=== PATIENT | male | born 1985 ===

== ENCOUNTER 2016-08-21 09:00 | Observation (INO) | payer MEDICAID ==
[2016-08-21 09:06] VITALS: BP 115/70; O2SAT 98
[2016-08-21 09:07] VITALS: BMI 17.7
[2016-08-21] MEDS ORDERED: Sodium Chloride 0.9% 1,000 ML IV STA (09:22)
--- NOTE | 2016-08-21 10:00 | RAD ---
HISTORY: fever COMPARISON: No prior. FINDINGS: LUNGS: No active pulmonary disease. PLEURA: No significant pleural effusion identified, no pneumothorax apparent. CARDIOVASCULAR: Normal. OSSEOUS STRUCTURES: No significant abnormalities. VISUALIZED UPPER ABDOMEN: Normal. OTHER FINDINGS: None. IMPRESSION: No active disease.
[2016-08-21 10:07] LABS: VENOUS BLOOD GAS BASE EXCESS 1.8 mmol/L (0.0-2.0); VENOUS BLOOD GAS PCO2 22 mmHg (40-60)
[2016-08-21 10:46] LABS: BASO # 0.1 K/uL (0.0-0.2); BASO % 0.4 % (0.0-2.0); EOS % 0.2 % (0.0-4.0); HEMATOCRIT 41.8 % (35.0-51.0); LYMPH # 0.8 K/uL (1.0-4.3); LYMPH % 5.1 % (20.0-40.0); MEAN CELL VOLUME 81.8 fl (80.0-94.0); MEAN CORPUSCULAR HEMOGLOBIN 27.3 pg (27.0-31.0); MEAN CORPUSCULAR HGB CONC 33.4 g/dL (33.0-37.0); MEAN PLATELET VOLUME 8.5 fl (7.2-11.7); MONO # 0.5 K/uL (0.0-0.8); MONO % 3.2 % (0.0-10.0); NEUT # 15.1 K/uL (1.8-7.0); NEUT % 91.1 % (50.0-75.0); PLATELET COUNT 272 K/uL (130-400); RED CELL DISTRIBUTION WIDTH 13.5 % (11.5-14.5); WHITE BLOOD COUNT 16.6 K/uL (4.8-10.8)
[2016-08-21 11:00] LABS: CHLORIDE 106 mmol/L (98-107); POTASSIUM 3.4 MMOL/L (3.6-5.0); SODIUM 141 mmol/l (132-148)
[2016-08-21 11:02] LABS: AST/SGOT 34 U/L (17-59); BILIRUBIN,TOTAL 0.9 mg/dl (0.2-1.3); CARBON DIOXIDE 23 mmol/L (22-30); GFR AFRICAN-AMERICAN > 60
[2016-08-21 11:03] LABS: ALB/GLOB RATIO 1.4 (1.0-2.1); ALKALINE PHOSPHATASE 171 U/L (38-126); ALT/SGPT 26 U/L (21-72); BLOOD UREA NITROGEN 12 mg/dl (9-20); CALCIUM 9.3 mg/dL (8.4-10.2); GLUCOSE,RANDOM 102 mg/dL (75-110); TOTAL PROTEIN 7.3 G/DL (6.3-8.2)
[2016-08-21 11:57] LABS: EOSINOPHIL 1 % (0-7); NEUTROPHIL 85 % (42-75); TOTAL CELLS COUNTED 100
[2016-08-21 11:59] LABS: LARGE PLATELETS PRESENT
[2016-08-21 16:54] VITALS: PULSE 72; RESP 18; TEMP 98.7
--- NOTE | 2016-08-21 18:14 | ED PDOC ---
HPI: General Adult Time Seen by Provider: 08/21/16 09:16 Chief Complaint (Nursing): Flu-like Symptoms Chief Complaint (Provider): Flu-like Symptoms History Per: Patient, EMS History/Exam Limitations: no limitations Onset/Duration Of Symptoms: Days (x4) Have you had recent travel within the past 21 days to any of the following countries: [place], [place], [place] or [place]?: No Current Symptoms Are (Timing): Still Present Severity: Moderate Additional Complaint(s): Hari Olmos is a 30 year old male, legally blind with a past medical history inclusive of seizures (last as of 2004, self-medicates with cannabis though supposed to be taking phenobarbital), who presents to the ED on 08/21/16 , via EMS, for the evaluation of both subjective fever and diffuse myalgias that he has experienced x4 days. ED visit was prompted after had experienced the sensation of convulsions this morning, though he denies loss of consciousness and is able to recall all events of episode. Denies headache, neck pain, photophobia, sore throat, abdominal pain, vomiting, diarrhea or rash. Further denies additional drug use. Sick contacts over the last week include a member of his family. PMD: non CPH Past Medical History Reviewed: Historical Data, Nursing Documentation, Vital Signs Vital Signs: Last Vital Signs Temp 98.7 F 08/21/16 16:54 Pulse 72 08/21/16 16:54 Resp 18 08/21/16 16:54 BP 115/70 08/21/16 09:06 Pulse Ox 98 08/21/16 09:06 - Medical History PMH: Fractures (left femur), Seizures (last 2004) Other PMH: legally blind - Surgical History Surgical History: No Surg Hx - Family History Family History: States: Unknown Family Hx - Social History Current smoker - smoking cessation education provided: No Alcohol: None Drugs: Cannabis - Immunization History Hx Tetanus Toxoid Vaccination: No Hx Influenza Vaccination: No Hx Pneumococcal Vaccination: No - Home Medications Home Medications: Ambulatory Orders Medication Instructions Recorded Ibuprofen [Motrin Tab] 600 mg PO Q6 PRN #15 tab 08/21/16 - Allergies Allergies/Adverse Reactions: Allergies Allergy/AdvReac Type Severity Reaction Status Date / Time No Known Allergies Allergy Verified 03/22/15 07:00 Review of Systems ROS Statement: Except As Marked, All Systems Reviewed And Found Negative Constitutional: Positive for: Fever (subjective), Malaise, Other (diffuse myalgias) ENT: Negative for: Throat Pain Gastrointestinal: Negative for: Vomiting, Abdominal Pain, Diarrhea Musculoskeletal: Negative for: Neck Pain Skin: Negative for: Rash Neurological: Positive for: Seizures ("sensation of convulsions" though no LOC, able to recall all events). Negative for: Headache, Other (no photophobia) Physical Exam - Reviewed Nursing Documentation Reviewed: Yes Vital Signs Reviewed: Yes - Physical Exam Appears: Positive for: Non-toxic, No Acute Distress Head Exam: Positive for: ATRAUMATIC, NORMOCEPHALIC Skin: Positive for: Normal Color, Warm, Dry ENT: Positive for: Normal ENT Inspection, TM Is/Are (normal b/l). Negative for : Pharyngeal Erythema, Tonsillar Exudate, Tonsillar Swelling Neck: Positive for: Normal, Painless ROM (no nuchal rigidity), Supple Cardiovascular/Chest: Positive for: Regular Rate, Rhythm. Negative for: Murmur Respiratory: Positive for: Normal Breath Sounds. Negative for: Respiratory Distress Gastrointestinal/Abdominal: Positive for: Normal Exam, Soft. Negative for: Tenderness Back: Positive for: Normal Inspection Extremity: Positive for: Normal ROM (no Kernig's Sign) Neurologic/Psych: Positive for: Alert, Oriented - Laboratory Results Result Diagrams: 08/21/16 10:33 08/21/16 10:33 - ECG O2 Sat by Pulse Oximetry: 98 (RA) Pulse Ox Interpretation: Normal Medical Decision Making Medical Decision Makin:16 Initial Impression: will workup for flu-like illness in setting of known seizure history. Initial Plan: * CXR * VBG Shock Panel * Labs * Udip * Urine Drug Screen * Influenza A B * IV NS 1000ml at 1000mls/hr * Toradol 30mg IV * Tylenol 975mg PO * Reevaluation 13:00 Labs reviewed, notable for mildly elevated WBC count. CXR and chemistry are unremarkable. Patient is negative for Influenza. Patient will be placed into ED Observation so that he can be monitored for signs of developing headache or nuchal rigidity. See Obs note for further updates. Scribe Attestation: Documented by Denise Box, acting as a scribe for Paras Glass III, DO. Provider Scribe Attestation: All medical record entries made by the Scribe were at my direction and personally dictated by me. I have reviewed the chart and agree that the record accurately reflects my personal performance of the history, physical exam, medical decision making, and the department course for this patient. I have also personally directed, reviewed, and agree with the discharge instructions and disposition. ED OBSERVATION Date of observation admission: 08/21/16 Time of observation admission: 13:00 - Observation admission statement Patient is being placed in observation because:: To observe for developing signs of headache/nuchal rigidity. - Goals of Observation Goals of observation are:: Observation. - Progress Note Progress Note: 08/21/16 14:16 Patient denies onset of headache, photophobia or neck pain. Resting comfortably with no apparent distress. 08/21/16 15:12 Patient denies onset of headache, photophobia or neck pain. Still resting comfortably with no apparent distress. 08/21/16 16:32 Patient still denies onset of headache, photophobia or neck pain. Resting comfortably with no apparent distress. 08/21/16 17:45 Patient has been observed in the ED for 8 hours and has consistently denied headache, photophobia or neck pain. Symptoms have reportedly gradually improved over duration of ED visit and patient remains afebrile. Risks of LP outweigh likelihood of acute bacterial meningitis. Patient is medically stable and requires no further observation or treatment in the ED at this time, will discharge home with Rx for Motrin. Counseling provided regarding diagnosis and lab results, all questions answered. Patient instructed to follow up with his PMD. Father has been contacted to transport patient home. There is agreement to discharge plan, return for acute worsening of symptoms or if begin developing headache, photophobia, neck pain or nuchal rigidity. Clinical Impression: viral syndrome Disposition - Clinical Impression Clinical Impression: Influenza-like symptoms - Patient ED Disposition Is Patient to be Admitted: No Counseled Patient/Family Regarding: Studies Performed, Diagnosis, Need For Followup, Rx Given - Disposition Disposition: Routine/Home Disposition Time: 13:00 Condition: STABLE
== END 2016-08-21 17:38 | disposition home or self-care (01) ==
LOC: H.ER 09:00 → H.EROBSV 16:27
PROVIDERS: ADMIT Emergency Medicine; ATTEND Emergency Medicine
DX: B34.9 Viral infection, unspecified (principal); R56.9 Unspecified convulsions; H54.8 Legal blindness, as defined in USA

== ENCOUNTER 2018-01-04 12:08 | Emergency (ER) | payer MEDICAID ==
[2018-01-04 12:08] VITALS: BMI 17.7
[2018-01-04 12:29] VITALS: PULSE 80; TEMP 98
--- NOTE | 2018-01-04 13:01 | ED PDOC ---
HPI: Psych/Substance Abuse Time Seen by Provider: 01/04/18 12:33 Chief Complaint (Nursing): Psychiatric Evaluation Chief Complaint (Provider): Psychiatric Evaluation History Per: Patient History/Exam Limitations: no limitations Onset/Duration Of Symptoms: Days (x2) Current Symptoms Are (Timing): Still Present Suicide/Self Injury Attempted (Context): None Modifying Factor(s): Alcohol, Other (ecstasy) Associated Symptoms: Anxiety, Paranoia Additional Complaint(s): 32 year old male presents for psychiatric evaluation after having paranoid feeling and thoughts since last night. Patient states he was drinking sangria when one of his friends admitted to slipping a [place] into his drink. He reports feeling associated anxiety. Otherwise: (-) suicidal ideation, (-) homicidal ideation, (-) depression, or (-) other medical complaints. PMD: none provided Past Medical History Reviewed: Historical Data, Nursing Documentation, Vital Signs Vital Signs: Last Vital Signs Temp 98 F 01/04/18 12:24 Pulse 80 01/04/18 12:24 Resp 17 01/04/18 12:24 BP 131/84 01/04/18 12:24 Pulse Ox 100 01/04/18 12:24 - Medical History PMH: Fractures (left femur), Seizures (last 2004) - Family History Family History: States: Unknown Family Hx - Social History Alcohol: Occasional Drugs: Cannabis (ecstasy), Other ([place]) - Immunization History Hx Tetanus Toxoid Vaccination: No Hx Influenza Vaccination: No Hx Pneumococcal Vaccination: No - Home Medications Home Medications: Ambulatory Orders Medication Instructions Recorded Ibuprofen [Motrin Tab] 600 mg PO Q6 PRN #15 tab 08/21/16 - Allergies Allergies/Adverse Reactions: Allergies Allergy/AdvReac Type Severity Reaction Status Date / Time No Known Allergies Allergy Verified 03/22/15 07:00 Review of Systems ROS Statement: Except As Marked, All Systems Reviewed And Found Negative Psych: Positive for: Anxiety, Other (paranoia). Negative for: Depression, Suicidal ideation (or homicial ideation) Physical Exam - Reviewed Nursing Documentation Reviewed: Yes Vital Signs Reviewed: Yes - Physical Exam Comments: GENERAL APPEARANCE: Patient is awake, alert, oriented x 3, in no acute distress , is calm and cooperative. SKIN: Warm, dry; (-) cyanosis HEAD: (-) scalp swelling, (-) scalp tenderness. EYES: (-) conjunctival pallor, (-) scleral icterus, (-) nystagmus. ENMT: Mucous membranes moist. Airway patent: (-) stridor. NECK: (-) tenderness, (-) stiffness, (-) lymphadenopathy. HEART AND CARDIOVASCULAR: (-) irregularity; (-) murmur, (-) gallop. CHEST AND RESPIRATORY: (-) rales, (-) rhonchi, (-) wheezes; breath sounds equal. ABDOMEN: Soft, (-) distention, (-) tenderness, (-) guarding. NEURO AND PSYCH: Mental status as above. 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 Pupils equal and reactive; EOMI; (-) facial asymmetry ; tongue and uvula midline. Strength symmetric. - ECG O2 Sat by Pulse Oximetry: 100 (RA) Pulse Ox Interpretation: Normal Medical Decision Making Medical Decision Making: Time: 1246 Initial Plan: * Drug screen Time: 1414 --Drug screen: positive for cannabinoids. UDS +cannabis Patient is medically cleared for crisis evaluation. Patient is seen and evaluated by crisis. Sandra crisis evaluation, decision made for outpatient follow up as per Dr. Valdez. Scribe Attestation: Documented by Jagruti Chaves, acting as a scribe for Betty Belcher PA-C. Provider Scribe Attestation: All medical record entries made by the Scribe were at my direction and personally dictated by me. I have reviewed the chart and agree that the record accurately reflects my personal performance of the history, physical exam, medical decision making, and the department course for this patient. I have also personally directed, reviewed, and agree with the discharge instructions and disposition. Disposition - Clinical Impression Clinical Impression: Anxiety - Patient ED Disposition Is Patient to be Admitted: No Counseled Patient/Family Regarding: Studies Performed, Diagnosis, Need For Followup - Disposition Disposition: Routine/Home Disposition Time: 14:15 Condition: STABLE Additional Instructions: Thank you for letting us take care of you today. You were treated for anxiety. The emergency medical care you received today was directed at your acute symptoms. Return to the Emergency Department if your symptoms worsen, do not improve, or if you have any other problems. Please follow up as advised by crisis. Bring any paperwork you were given at discharge with you along with any medications you are taking to your follow up visit. Our treatment cannot replace ongoing medical care by a primary care provider (PCP) outside of the emergency department. Thank you for allowing the [facility] team to be part of your care today. Instructions: Anxiety, Adult (DC) Forms: [employer] ([place]) - PA / SCHEDULING ANALYST / Resident Statement MD/DO has reviewed & agrees with the documentation as recorded.
[2018-01-04 13:57] LABS: BARBITURATES, UR NEGATIVE (NEGATIVE); BENZODIAZEPINES, UR NEGATIVE (NEGATIVE); OPIATES, UR NEGATIVE (NEGATIVE); PHENCYCLIDINE, UR NEGATIVE (NEGATIVE)
[2018-01-04 14:22] VITALS: BP 129/81; RESP 15
[2018-01-04 16:11] VITALS: O2SAT 100
== END 2018-01-04 14:22 | disposition home or self-care (01) ==
LOC: H.ER 12:08
DX: F41.9 Anxiety disorder, unspecified (principal)